=== PATIENT | male | born 1955 | race African-American/Black ===

== ENCOUNTER → 2020-10-18 | Outpatient (CLI) | payer OTHER | LOC: MC.RAD 13:32 | DX: N62 Hypertrophy of breast (principal) ==

== ENCOUNTER → 2024-01-08 | Outpatient (CLI) | payer OTHER | LOC: MHCPAIN 10:17 | DX: M96.1 Postlaminectomy syndrome, not elsewhere classified (principal); M54.50 Low back pain, unspecified; M54.12 Radiculopathy, cervical region; E11.9 Type 2 diabetes mellitus without complications; Z79.4 Long term (current) use of insulin; M16.0 Bilateral primary osteoarthritis of hip | CPT/HCPCS: G0463 ==